=== PATIENT | female | born 1985 | race Caucasian/White ===

== ENCOUNTER 2018-03-01 18:29 | Emergency (ER) | payer OTHER ==
[~2018-03-01] VITALS: Ht 157.4 cm; Wt 68.0 kg
[~2018-03-01 18:29] MED LIST: AUGMENTIN 875 M1 TAB PO; BACTRIM DS 8001 TA1 PO; BIRTH CONTROL1 EAC1 PO; CIPRO500 MG PO; IBUPROFEN800 MG PO; KEFLEX500 MG PO; PRENATAL1 TA1 PO; THERAPEUTIC VIT1 CAP PO; TRAMADOL HCL50 MG PO; VICODIN 5/500 505 MG PO
== END 2018-03-01 19:10 | disposition home or self-care (01) ==
LOC: ED 18:29
DX: S39.012A Strain of muscle, fascia and tendon of lower back, initial encounter (principal); Z79.2 Long term (current) use of antibiotics; Z79.899 Other long term (current) drug therapy; X50.1XXA Overexertion from prolonged static or awkward postures, initial encounter; Y93.89 Activity, other specified; Y92.098 Other place in other non-institutional residence as the place of occurrence of the external cause; Y99.8 Other external cause status

== ENCOUNTER 2020-11-05 00:34 | Emergency (ER) | payer OTHER | END 2020-11-05 02:05 | disposition left against medical advice (07) | LOC: ED 00:34 | DX: J00 Acute nasopharyngitis [common cold] (principal); Z53.21 Procedure and treatment not carried out due to patient leaving prior to being seen by health care provider ==